=== PATIENT | female | born 1980 | race Caucasian/White ===

== ENCOUNTER 2018-07-21 18:48 | Emergency (ER) | payer BC ==
[2018-07-21 18:48] VITALS: BMI 21.5
[2018-07-21] MEDS ORDERED: Sodium Chloride 0.9% 1,000 ML IV ONE (19:42)
--- NOTE | 2018-07-21 20:32 | ED PDOC ---
HPI: Hypertension/Hypotension Time Seen by Provider: 07/21/18 19:30 Chief Complaint (Nursing): Palpitations Chief Complaint (Provider): Palpitations, Anxious History Per: Patient History/Exam Limitations: no limitations Onset/Duration Of Symptoms: Days (x 2 weeks) Current Symptoms Are (Timing): Intermittent Episodes Additional Complaint(s): 38 year old female presents to the ED for evaluation of feeling like she is "in a fog" and being nervous for the last two weeks. Patient reports on July 08, yesterday and today, she has been experiencing palpitations. She monitors her heart rate on her Iphone and states that when she feels like this her heart rate is in the high 90s, but never exceeds 99. Patient had gastric bypass surgery last year and for surgical clearance, she had a cardiac echo done that was normal. She admits that she has stress at home with her children and at work. Denies taking medication [employer], fever, unintended weight loss, nausea, vomiting, night sweats, chills, abdominal pain, chest pain and shortness of breath. PMD: [facility] 4 days ago. Past Medical History Reviewed: Historical Data, Nursing Documentation, Vital Signs Vital Signs: Last Vital Signs Temp 98.6 F 07/21/18 18:56 Pulse 82 07/21/18 18:56 Resp 18 07/21/18 18:56 BP 113/75 07/21/18 18:56 Pulse Ox 99 07/21/18 18:56 - Medical History PMH: Migraine - Surgical History Other surgeries: gastric bypass, abdominoplasty and liposuction - Family History Family History: States: Unknown Family Hx - Social History Current smoker - smoking cessation education provided: No Alcohol: Social Drugs: Denies - Home Medications Home Medications: Ambulatory Orders Medication Instructions Recorded Ca/Cholecalciferol/Fe/Folic 1 1 tab PO DAILY 04/30/14 [Basic's Vitamins] - Allergies Allergies/Adverse Reactions: Allergies Allergy/AdvReac Type Severity Reaction Status Date / Time No Known Allergies Allergy Verified 04/30/14 12:28 Review of Systems ROS Statement: Except As Marked, All Systems Reviewed And Found Negative Constitutional: Negative for: Fever, Weight loss (unintended) Cardiovascular: Positive for: Palpitations. Negative for: Chest Pain Respiratory: Negative for: Cough, Shortness of Breath Psych: Positive for: Anxiety Physical Exam - Reviewed Nursing Documentation Reviewed: Yes Vital Signs Reviewed: Yes - Physical Exam Comments: GENERALIZED APPEARANCE:Patient is awake, alert, oriented x3 in no acute distress. SKIN: Warm, dry; (-) cyanosis. HEAD: (-) scalp swelling or tenderness. EYES: (-) conjunctival pallor. ENMT: Mucous membranes moist. Airway patent, (-) stridor. NECK: Supple, FROM (-) tenderness, (-) stiffness, (-) lymphadenopathy. CHEST AND RESPIRATORY: (-) rales, (-) rhonchi, (-) wheezes; breath sounds equal bilaterally. Respirations even and nonlabored. HEART AND CARDIOVASCULAR: (-) irregularity ABDOMEN AND GI: Soft; (-) distention, (-) tenderness, (-) rebound, (-) guarding, (-) palpable masses, (-) flank tenderness. EXTREMITIES: (-) deformity; (-) edema. Distal pulses: present. NEURO AND PSYCH: Mental status as above. 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 EOMI, (-) facial asymmetry; (-) dysarthria; tongue and uvula midline. Strength symmetric. Gait: normal. Speech: clear. - Laboratory Results Result Diagrams: 07/21/18 21:05 07/21/18 21:05 Urine POC: Negative - ECG O2 Sat by Pulse Oximetry: 99 (RA) Pulse Ox Interpretation: Normal Medical Decision Making Medical Decision Makin:40 Impression: palpitations; probable anxiety Initial Plan: --UDS --EKG --CMP --CBC --T4 --TSH --NS IV --Xanax .25 mg PO --UA EKG: NSR @ 81bpm (-) ST elevation (-) ectopy Patient declined speaking to crisis at this time. 2205 CBC with anemia, Hgb 9.9. No leukocytosis. CMP, U/A, and UDS unremarkable. Thyroid studies WNL. Results discussed with patient who states that she developed anemia after her gastric surgery and is noncompliant with prescribed vitamins since the procedure. Compliance with vitamin regimen stressed with patient. On re- evaluation, patient reports improvement of symptoms. On exam, patient remains AAOx3, in no acute distress. Lungs clear to auscultation, cardiac RRR, repeat neuro exam shows no focal findings. Vitals stable. Lab/Diagnostic results d/w the patient in great detail. Diagnosis of concern for palpitations, to consider anxiety d/w the patient. Based on history, exam and diagnostic results, plan will be for outpatient follow up with PMD. Patient instructed to follow-up with pmd / referral provided / the clinic in 1- 2 days without fail. Return to the emergency room at any time for any new or worsening symptoms. Patient states she fully agrees with and understands discharge instructions. States that she agrees with the plan and disposition. Verbalized and repeated discharge instructions and plan. I have given the patient opportunity to ask any additional questions. Scribe Attestation: Documented by Doris Shrestha acting as a scribe for Ida Albarado PA-C Provider Scribe Attestation: All medical record entries made by the Scribe were at my direction and personally dictated by me. I have reviewed the chart and agree that the record accurately reflects my personal performance of the history, physical exam, medical decision making, and the department course for this patient. I have also personally directed, reviewed, and agree with the discharge instructions and disposition. Disposition - Clinical Impression Clinical Impression: Anxiety, Intermittent palpitations - Patient ED Disposition Is Patient to be Admitted: No Counseled Patient/Family Regarding: Studies Performed, Diagnosis, Need For F ollowup - Disposition Referrals: [facility] [Provider Group] Disposition: Routine/Home Disposition Time: 22:15 Condition: STABLE Additional Instructions: The emergency medical care you received today was directed at your acute symptoms. If you were prescribed any medication, please fill it and take as directed. It may take several days for your symptoms to resolve. Return to the Emergency Department if your symptoms worsen, do not improve, or if you have any other problems. Please contact your doctor in 2 days for re-evaluation and follow up / or call one of the physicians/clinics you have been referred to that are listed on the Patient Visit Information form that is included in your discharge packet. Bring any paperwork you were given at discharge with you along with any medications you are taking to your follow up visit. Our treatment cannot replace ongoing medical care by a primary care provider (PCP) outside of the emergency depart ment. Instructions: Palpitations, Anxiety, Adult (DC) Forms: CAL - [employer] [facility] (Martiniquais) Print Language: KAZAKH - POA Present On Arrival: None Results - Lab Results Lab Results: 07/21/18 07/21/18 07/21/18 21:05 21:05 21:05 WBC RBC Hgb Hct MCV MCH MCHC RDW Plt Count MPV Neut % (Auto) Lymph % (Auto) [place] % (Auto) Eos % (Auto) Baso % (Auto) Neut # (Auto) Lymph # (Auto) [place] # (Auto) Eos # (Auto) Baso # (Auto) Sodium 140 Potassium 4.5 Chloride 106 Carbon Dioxide 29 Anion Gap 10 BUN 12 Creatinine 0.5 L Est GFR ( Amer) > 60 Est GFR (Non-Af Amer) > 60 Random Glucose 90 Calcium 9.1 Total Bilirubin 0.3 AST 31 ALT 28 Alkaline Phosphatase 62 Total Protein 7.5 Albumin 4.2 Globulin 3.3 Albumin/Globulin Ratio 1.3 Thyroxine (T4) 7.37 TSH 3rd Generation 0.71 Urine Color Yellow Urine Clarity Cloudy Urine pH 6.0 Ur Specific [place] 1.015 Urine Protein Negative Urine Glucose (UA) Neg Urine Ketones Negative Urine Blood Negative Urine Nitrate Negative Urine Bilirubin Negative Urine Urobilinogen 0.2-1.0 Ur Leukocyte Esterase Neg Urine RBC (Auto) 3 Urine Microscopic WBC 1 Ur Squamous Epith Cells 19 H Urine Bacteria Rare Urine Opiates Screen Negative Urine Methadone Screen Negative Ur Barbiturates Screen Negative Ur Phencyclidine Scrn Negative Ur Amphetamines Screen Negative U Benzodiazepines Scrn Negative U Oth Cocaine Metabols Negative U Cannabinoids Screen Negative 07/21/18 21:05 WBC 5.8 RBC 4.05 Hgb 9.9 L Hct 31.3 L MCV 77.1 L D MCH 24.3 L MCHC 31.5 L RDW 16.7 H Plt Count 335 MPV 8.9 Neut % (Auto) 56.0 Lymph % (Auto) 34.6 [place] % (Auto) 7.1 Eos % (Auto) 1.0 Baso % (Auto) 1.3 Neut # (Auto) 3.3 Lymph # (Auto) 2.0 [place] # (Auto) 0.4 Eos # (Auto) 0.1 Baso # (Auto) 0.1 Sodium Potassium Chloride Carbon Dioxide Anion Gap BUN Creatinine Est GFR ( Amer) Est GFR (Non-Af Amer) Random Glucose Calcium Total Bilirubin AST ALT Alkaline Phosphatase Total Protein Albumin Globulin Albumin/Globulin Ratio Thyroxine (T4) TSH 3rd Generation Urine Color Urine Clarity Urine pH Ur Specific [place] Urine Protein Urine Glucose (UA) Urine Ketones Urine Blood Urine Nitrate Urine Bilirubin Urine Urobilinogen Ur Leukocyte Esterase Urine RBC (Auto) Urine Microscopic WBC Ur Squamous Epith Cells Urine Bacteria Urine Opiates Screen Urine Methadone Screen Ur Barbiturates Screen Ur Phencyclidine Scrn Ur Amphetamines Screen U Benzodiazepines Scrn U Oth Cocaine Metabols U Cannabinoids Screen
[2018-07-21 21:11] LABS: BASO # 0.1 K/uL (0.0-0.2); BASO % 1.3 % (0.0-2.0); EOS # 0.1 K/uL (0.0-0.7); HEMOGLOBIN 9.9 g/dL (12.0-16.0); LYMPH % 34.6 % (20.0-40.0); MEAN CELL VOLUME 77.1 fl (81.0-99.0); MEAN CORPUSCULAR HEMOGLOBIN 24.3 pg (27.0-31.0); MEAN CORPUSCULAR HGB CONC 31.5 g/dL (33.0-37.0); MEAN PLATELET VOLUME 8.9 fl (7.2-11.7); MONO # 0.4 K/uL (0.0-0.8); MONO % 7.1 % (0.0-10.0); NEUT # 3.3 K/uL (1.8-7.0); RBC 4.05 Mil/uL (3.80-5.20); RED CELL DISTRIBUTION WIDTH 16.7 % (11.5-14.5); WHITE BLOOD COUNT 5.8 K/uL (4.8-10.8)
[2018-07-21 21:16] LABS: SQUAMOUS EPITHIAL 19 /hpf (0-5); URINE BACTERIA RARE (<OCC); URINE BILIRUBIN NEGATIVE (NEGATIVE); URINE BLOOD NEGATIVE (NEGATIVE); URINE CLARITY CLOUDY (Clear); URINE COLOR YELLOW (YELLOW); URINE GLUCOSE (UA) NEG (NEGATIVE); URINE LEUKOCYTE ESTERASE NEG Leu/uL (Negative); URINE PROTEIN NEGATIVE (NEGATIVE); URINE UROBILINOGEN 0.2-1.0 mg/dL (0.2-1.0)
[2018-07-21 21:18] LABS: ALB/GLOB RATIO 1.3 (1.0-2.1); ALBUMIN 4.2 g/dL (3.5-5.0); ALT/SGPT 28 U/L (9-52); AST/SGOT 31 U/L (14-36); BLOOD UREA NITROGEN 12 mg/dl (7-17); CALCIUM 9.1 mg/dL (8.4-10.2); GFR NON-AFRICAN AMERICAN > 60
[2018-07-21 21:30] LABS: BARBITURATES, UR NEGATIVE (NEGATIVE); BENZODIAZEPINES, UR NEGATIVE (NEGATIVE); OPIATES, UR NEGATIVE (NEGATIVE); PHENCYCLIDINE, UR NEGATIVE (NEGATIVE)
[2018-07-21 21:36] LABS: T4 7.37 ug/dl (5.5-11.0)
[2018-07-22 04:40] VITALS: BP 129/74; PULSE 72; RESP 16; TEMP 98
--- NOTE | 2018-07-22 07:26 | CARD ---
APPROVED REPORT Date of service: 07/21/2018 EKG Measurement Heart [id number] <Conclusion> Normal sinus rhythm Normal ECG
[2018-07-24 23:22] VITALS: O2SAT 99
== END 2018-07-21 22:30 | disposition home or self-care (01) ==
LOC: H.ER 18:48
DX: R00.2 Palpitations (principal); F41.9 Anxiety disorder, unspecified
CPT/HCPCS: 80053; 81003; 81025; 84436; 84443; 85025; 93005; 99284; G0480; J7030